=== PATIENT | female | born 1995 | race Caucasian/White ===

== ENCOUNTER 2016-12-29 02:46 | Inpatient (IN) | payer MEDICAID ==
[~2016-12-29] VITALS: Ht 139.7 cm; Wt 76.8 kg
[2016-12-29] MEDS ORDERED: D5%-LACTATED RINGERS 1,000 ML IV SCH (05:14)
[2016-12-29] MEDS ORDERED: OXYTOCIN 30U/ 0.9% NaCL 500ML 500 ML IV PRN (05:14)
[2016-12-29] MEDS ORDERED: OXYTOCIN 30U/ 0.9% NaCL 500ML 500 ML IV ONE (05:14)
[2016-12-29] MEDS: LACTATED RINGERS 1,000 ML IV SCH ×2 (05:28→20:17)
[2016-12-29] MEDS ORDERED: TERBUTALINE 1 MG/ML, 1ML SQ PRN (05:30)
[2016-12-29] MEDS ORDERED: PLEASE ENTER ALLERGIES MC SCH ×2 (05:30)
[2016-12-29] MEDS ORDERED: MISOPROSTOL 25 MCG TABLET VG PRN (05:30)
[2016-12-29] MEDS ORDERED: METOCLOPRAMIDE 5 MG/ML, 2ML IVPush PRN (05:30)
[2016-12-29] MEDS ORDERED: FENTANYL PF 100 MCG/2ML IV PRN (05:30)
[2016-12-29] MEDS ORDERED: SODIUM CITRATE/CITRIC ACID 30 ML UDC PO PRN (05:30)
[2016-12-29] MEDS ORDERED: FENTANYL PF 100 MCG/2ML IVPush PRN (05:30)
[2016-12-29] MEDS ORDERED: OXYTOCIN 30U/ 0.9% NaCL 500ML 500 ML ONE (05:31)
[2016-12-29] MEDS ORDERED: NEWBORN KIT ONE (05:33)
[2016-12-29 06:14] VITALS: BP 123/79
[2016-12-29] MEDS ORDERED: FENTANYL/BUPIV./NS/PF 250 ML EPIDCONT ONE (15:01)
[2016-12-29] MEDS ORDERED: LIDOCAINE/PF 1.5%-EPI 1:200K, 30ML ONE (15:02)
[2016-12-29 20:21] LABS: ASPARTATE AMINO TRANSFERASE 20 U/L (15-37); BLOOD UREA NITROGEN 5 mg/dL (7-18)
[2016-12-29] MEDS ORDERED: LABETALOL 5MG/ML, 20ML ONE (22:06)
[2016-12-29] MEDS ORDERED: LABETALOL 5MG/ML, 20ML IVPush PRN (22:30)
[2016-12-30] MEDS ORDERED: METOCLOPRAMIDE 5 MG/ML, 2ML ONE (01:23)
[2016-12-30] MEDS ORDERED: SODIUM CITRATE/CITRIC ACID 30 ML UDC ONE (01:23)
[2016-12-30] MEDS: LACTATED RINGERS 1,000 ML IV SCH ×5 (01:24→18:54)
[2016-12-30] MEDS: OXYTOCIN 30U/ 0.9% NaCL 500ML 500 ML IV SCH ×3 (01:24→21:24)
[2016-12-30] MEDS ORDERED: LIDOCAINE/MPF 2%-EPI 1:200K, 20 ML ONE (01:29)
[2016-12-30] MEDS ORDERED: SODIUM CITRATE/CITRIC ACID 30 ML UDC PO ONE (01:30)
[2016-12-30] MEDS ORDERED: FENTANYL PF 100 MCG/2ML ONE (01:30)
[2016-12-30] MEDS ORDERED: METOCLOPRAMIDE 5 MG/ML, 2ML IV ONE (01:30)
[2016-12-30] MEDS ORDERED: LACTATED RINGERS 1,000 ML IVBOLUS ONE (01:30)
[2016-12-30] MEDS ORDERED: HYDROmorphone 2 MG/ML, 1ML ONE (01:59)
[2016-12-30] MEDS ORDERED: LACTATED RINGERS 1,000 ML IV SCH (02:54)
[2016-12-30] MEDS ORDERED: OXYTOCIN 30U/ 0.9% NaCL 500ML 500 ML IV SCH (02:54)
[2016-12-30] MEDS ORDERED: DIPH,PERTUSS(ACELL),TET VAC/PF NC IM-VACC PRN (03:00)
[2016-12-30] MEDS ORDERED: ACETAMINOPHEN 325 MG TABLET PO PRN ×2 (03:00)
[2016-12-30] MEDS ORDERED: SIMETHICONE 80 MG CHEW TAB PO PRN (03:00)
[2016-12-30] MEDS ORDERED: CARBOPROST TROMETHAMINE 250 MCG/ML, 1ML IM PRN (03:00)
[2016-12-30] MEDS ORDERED: CALCIUM CARBONATE 500 MG TAB.CHEW PO PRN (03:00)
[2016-12-30] MEDS ORDERED: ONDANSETRON 2MG/ML, 2ML IV PRN (03:00)
[2016-12-30] MEDS: OXYcodone/APAP 5/325MG TABLET PO PRN ×4 (04:32→20:35)
[2016-12-30 04:55] VITALS: BP 126/78
[2016-12-30] MEDS ORDERED: KETOROLAC 30 MG/1 ML ONE (07:33)
[2016-12-30] MEDS: KETOROLAC 30 MG/1 ML IVPush SCH ×3 (07:39→20:35)
[2016-12-30 07:40] VITALS: BP 130/80
[2016-12-30] MEDS: DOCUSATE 100 MG CAPSULE PO PRN ×2 (07:42→20:34)
[2016-12-30] MEDS: PRENATAL VIT/IRON/FA 1 EACH TABLET PO SCH (09:00)
[2016-12-30] MEDS ORDERED: CEFAZOLIN 1,000 MG ONE (10:02)
[2016-12-30] MEDS ORDERED: ONDANSETRON 2MG/ML, 2ML ONE (10:02)
[2016-12-30 11:55] VITALS: BP 118/74
[2016-12-30 16:30] VITALS: BP 127/80
[2016-12-30 21:10] VITALS: BP 133/84
[2016-12-31 00:15] VITALS: BP 116/66
[2016-12-31] MEDS: KETOROLAC 30 MG/1 ML IVPush SCH ×2 (02:23→02:34)
[2016-12-31] MEDS: OXYcodone/APAP 5/325MG TABLET PO PRN ×5 (02:23→21:15)
[2016-12-31] MEDS: IBUPROFEN 600 MG TABLET PO PRN ×4 (02:31→21:15)
[2016-12-31] MEDS: LACTATED RINGERS 1,000 ML IV SCH ×3 (02:54→18:54)
[2016-12-31 07:15] VITALS: BP 113/62
[2016-12-31] MEDS: OXYTOCIN 30U/ 0.9% NaCL 500ML 500 ML IV SCH ×2 (07:24→17:24)
[2016-12-31] MEDS: DOCUSATE 100 MG CAPSULE PO PRN ×2 (08:01→21:15)
[2016-12-31] MEDS: PRENATAL VIT/IRON/FA 1 EACH TABLET PO SCH (08:01)
[2016-12-31 20:20] VITALS: BP 127/83
[2017-01-01] MEDS: LACTATED RINGERS 1,000 ML IV SCH ×3 (02:54→18:54)
[2017-01-01] MEDS: OXYTOCIN 30U/ 0.9% NaCL 500ML 500 ML IV SCH ×3 (03:24→23:24)
[2017-01-01] MEDS: OXYcodone/APAP 5/325MG TABLET PO PRN ×4 (03:24→22:21)
[2017-01-01] MEDS: IBUPROFEN 600 MG TABLET PO PRN ×4 (03:24→22:21)
[2017-01-01 08:13] VITALS: BP 142/93
[2017-01-01] MEDS: PRENATAL VIT/IRON/FA 1 EACH TABLET PO SCH (08:16)
[2017-01-01] MEDS: DOCUSATE 100 MG CAPSULE PO PRN ×2 (08:16→22:21)
[2017-01-01 20:40] VITALS: BP 137/74
[2017-01-02] MEDS: LACTATED RINGERS 1,000 ML IV SCH ×2 (02:54→10:54)
[2017-01-02] MEDS: IBUPROFEN 600 MG TABLET PO PRN ×3 (04:24→15:44)
[2017-01-02] MEDS: OXYcodone/APAP 5/325MG TABLET PO PRN ×3 (04:24→15:44)
[2017-01-02 07:35] VITALS: BP 132/95
[2017-01-02] MEDS: OXYTOCIN 30U/ 0.9% NaCL 500ML 500 ML IV SCH (09:24)
[2017-01-02] MEDS: DOCUSATE 100 MG CAPSULE PO PRN (10:30)
[2017-01-02] MEDS: PRENATAL VIT/IRON/FA 1 EACH TABLET PO SCH (10:30)
[2017-01-02] MEDS ORDERED: OXYC-302 PO (18:14)
[2017-01-02] MEDS ORDERED: IBUP-1222 PO (18:14)
[2017-01-02] MEDS ORDERED: FERR325T10 PO (18:14)
[2017-01-02] MEDS ORDERED: SENN-25 PO (18:15)
== END 2017-01-02 18:20 | disposition home or self-care (01) | DRG 766 ==
LOC: LDIP 05:02 → 2NW 12-30 04:26
PROVIDERS: ADMIT Obstetrics & Gynecology; ATTEND Obstetrics & Gynecology
PROC: 10D00Z1 Extraction of Products of Conception, Low, Open Approach (ICD-10-PCS; principal; 2016-12-30)
DX: O33.9 Maternal care for disproportion, unspecified (principal); Z37.0 Single live birth; O61.9 Failed induction of labor, unspecified; Z3A.39 39 weeks gestation of pregnancy; O90.81 Anemia of the puerperium; D64.9 Anemia, unspecified; O62.1 Secondary uterine inertia
CPT/HCPCS: 36415; 80053; 81001; 82248; 82803; 84550; 85025; 86850; 86900; 90715; J0690; J1170; J1885; J2405; J3010; J3490; J2590; J7120; J7121

== ENCOUNTER 2019-06-09 14:36 | Emergency (ER) | payer BC, OTHER ==
[~2019-06-09] VITALS: Ht 139.7 cm; Wt 75.4 kg
[~2019-06-09 14:36] MED LIST: FERR-51 PO; IBUP-1222 PO; OXYC-302 PO; SENN-25 PO
[2019-06-09 14:42] VITALS: BP 131/71
--- NOTE | 2019-06-09 14:46 | NUR ---
AMBULATORY TO TRIAGE W/ QUICK STEADY GAIT
[2019-06-09] MEDS ORDERED: KETOROLAC 30 MG/1 ML IM ONE (15:00)
[2019-06-09] MEDS ORDERED: ACETAMINOPHEN 500 MG TABLET PO ONE (15:00)
[2019-06-09] MEDS ORDERED: KETOROLAC 30 MG/1 ML ONE (15:40)
== END 2019-06-09 16:30 | disposition home or self-care (01) ==
LOC: ED 15:54
DX: S39.012A Strain of muscle, fascia and tendon of lower back, initial encounter (principal); S29.012A Strain of muscle and tendon of back wall of thorax, initial encounter; V49.49XA Driver injured in collision with other motor vehicles in traffic accident, initial encounter; Y93.89 Activity, other specified; Y92.410 Unspecified street and highway as the place of occurrence of the external cause; Y99.8 Other external cause status
CPT/HCPCS: 72072; 72110; 96372; 99283; J1885

== ENCOUNTER 2019-09-03 14:28 | Emergency (ER) | payer BC, MEDICAID, OTHER ==
[~2019-09-03] VITALS: Ht 139.7 cm; Wt 77.9 kg
[2019-09-03 15:28] LABS: BASOPHILS # (AUTO) 0.07 x10^3/uL (0-0.1); BASOPHILS % (AUTO) 1 % (0-1); EOSINOPHILS # (AUTO) 0.19 x10^3/uL (0-0.4); EOSINOPHILS % (AUTO) 2 % (1-7); LYMPHOCYTES # (AUTO) 2.51 x10^3/uL (1-3.4); LYMPHOCYTES % (AUTO) 20 % (22-44); MD NO; MEAN CORPUSCULAR HEMOGLOBIN 28.7 pg (27.0-34.8); MEAN CORPUSCULAR HGB CONC 33.3 g/dL (32.4-35.8); MEAN CORPUSCULAR VOLUME 86.2 fL (80-100); MEAN PLATELET VOLUME 5.9 fL (7.4-10.4); MONOCYTES # (AUTO) 0.58 x10^3/uL (0.2-0.8); MONOCYTES % (AUTO) 5 % (2-9); NEUTROPHILS # (AUTO) 9.09 x10^3/uL (1.8-6.8); NEUTROPHILS % (AUTO) 73 % (42-75); PLATELET COUNT 429 x10^3/uL (130-400); RED BLOOD COUNT 5.22 x10^6/uL (3.82-5.3); RED CELL DISTRIBUTION WIDTH 13.1 % (9.6-15.2)
[2019-09-03 15:37] LABS: ANION GAP 6 mmol/L (5-15); CALCIUM 8.9 mg/dL (8.5-10.1); CHLORIDE 108 mmol/L (98-107); CREATININE 1.01 mg/dL (0.55-1.02)
[2019-09-03 15:42] LABS: TROPONIN I < 0.015 ng/mL (0.000-0.045)
[2019-09-03 18:35] VITALS: BP 137/94
--- NOTE | 2019-09-03 18:35 | NUR ---
ASSUMED CARE OF PT AT THIS TIME FROM LOBBY. AMBULATORY TO ROOM WITH STEADY GAIT. 23 Y/O F PRESENTS STATING "CHEST PAIN THAT COMES AND GOES FOR 3 DAYS, SEVERITY CHANGES, FELT DIZZY ON AND OFF, PUSHING ON IT MAKES IT WORSE. 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 CP REPRODUCABLE TO PALPATION. DENIES SOB, TANNER, DIZZINES, N/V/D, FEVER, CHILLS. CONT PULSE OX, BP, CARDIAC MONITORS APPLIED. VSS. SR ON MONITOR. CALL LIGHT IN REACH. FALL PRECAUTIONS IN PLACE. SIDE RAILS UPX2. A&OX4. DR. LINARES AT BEDSIDE FOR EVALUATION, AWAITING ADDITIONAL ORDERS.
--- NOTE | 2019-09-03 18:49 | NUR ---
ARA ELIZABETH AT BEDSIDE TO DISCHARGE PT PER MD ORDER
--- NOTE | 2019-09-03 18:50 | NUR ---
TASK RN: DC EDUCATION PROVIDED, PT DEMONSTRATES UNDERSTANDING. PT AMBUALTED STEADILY TO DC WITH RN
[2019-09-03] MEDS ORDERED: BIRTH CONTROL SUBD (18:59)
== END 2019-09-03 18:52 | disposition home or self-care (01) ==
LOC: ED 15:30
DX: R07.89 Other chest pain (principal); R42 Dizziness and giddiness
CPT/HCPCS: 36415; 71046; 80048; 82040; 84484; 85025; 93005; 99285

== ENCOUNTER 2020-09-14 06:26 | Emergency (ER) | payer BC, MEDICAID, OTHER ==
[~2020-09-14] VITALS: Ht 142.2 cm; Wt 80.8 kg
[~2020-09-14 06:26] MED LIST changes: +BIRTH CONTROL SUBD; -OXYC-302 PO; +OXYC1TAB14 PO
--- NOTE | 2020-09-14 06:40 | NUR ---
INITIAL PT CONTACT. PT PRESENTS TO ED C/O "WOKE UP WITH SLURRED SPEECH, NUMBING OF FACE AND MOUTH AN DBOTH HANDS AND FELT LIKE SHE NEEDED TO THROW UP." HAS HAPPENED A COUPLE TIME, BUT TODAY IT WAS BAD. PT STATES SHE'S HAD BLURRED VISION AT TIMES. HAS BEEN TO [employer] RECENTLY, AND MIGHT HAVE A LARGE OPTIC NERVE OR NEEDED GLASSES FOR GLAUCOMA. PT'S STATES "IT WAS KIND OF LIKE A TODDLER THAT'S BEEN AWAKE FOR TOO LONG AND IS DELERIOUS AND JUST NEEDS TO SLEEP, JUST DIDN'T MAKE MUCH SENSE". PT AMBULATORY WITH STEADY GAIT TO ROOM, PT SITTING UPRIGHT ON KLARISSA BARAKAT, VSS. PT PLACED ON CONTINUOUS CARDIAC AND PULSE OX MONITORING. PT DENIES ANY NEEDS AT THIS TIME. CALL LIGHT AND PERSONAL BELONGINGS WITHIN REACH. ERP AT BEDSIDE.
--- NOTE | 2020-09-14 06:52 | NUR ---
GOT REPORT FROM ANA ELIZABETH AND WENT IN TO SEE PT. PT SITTING UP IN BED WITH FAMILY AT BEDSIDE.
--- NOTE | 2020-09-14 06:53 | NUR ---
BEDSIDE REPORT TO CAROLIN ELIZABETH AND KRISTINA ELIZABETH
--- NOTE | 2020-09-14 07:05 | NUR ---
PT BACK FROM CT.
[2020-09-14 07:32] LABS: ALBUMIN 3.7 g/dL (3.4-5.0); ANION GAP 9 mmol/L (5-15); CALCIUM 8.6 mg/dL (8.5-10.1); CHLORIDE 111 mmol/L (98-107); CREATININE 0.66 mg/dL (0.55-1.02); INTERNATIONAL NORMALIZED RATIO 1.02 (0.93-1.1); PROTHROMBIN TIME 10.9 Seconds (9.6-11.5)
[2020-09-14 07:37] LABS: BASOPHILS % (AUTO) 1 % (0-1); EOSINOPHILS % (AUTO) 1 % (1-7); LYMPHOCYTES % (AUTO) 28 % (22-44); MEAN CORPUSCULAR HEMOGLOBIN 28.1 pg (27.0-34.8); MEAN CORPUSCULAR HGB CONC 33.9 g/dL (32.4-35.8); MONOCYTES % (AUTO) 6 % (2-9); NEUTROPHILS % (AUTO) 64 % (42-75); PLATELET COUNT 323 x10^3/uL (130-400); RED BLOOD COUNT 5.08 x10^6/uL (3.82-5.3); RED CELL DISTRIBUTION WIDTH 12.9 % (9.6-15.2)
[2020-09-14] MEDS ORDERED: ONDANSETRON ODT 4 MG ONE (07:44)
[2020-09-14 07:45] LABS: AMPHETAMINE SCREEN, URINE Negative (Negative); BARBITURATE SCREEN, URINE Positive (Negative); BENZODIAZEPINE SCREEN, URINE Negative (Negative); CANNABINOID SCREEN, URINE Negative (Negative); COCAINE SCREEN, URINE Negative (Negative); METHADONE SCREEN, URINE Negative (Negative); OPIATE SCREEN, URINE Negative (Negative)
[2020-09-14 07:48] LABS: MD NO
--- NOTE | 2020-09-14 07:48 | NUR ---
PT COMPLAINT OF NAUSEA DUE TO TANNER. DISCUSSED PLAN OF CARE WITH PROVIDER. MEDICATED PER MAR. CYR.
[2020-09-14] MEDS ORDERED: SODIUM CHLORIDE FLUSH 10ML SYR IVF ONE (08:00)
[2020-09-14] MEDS ORDERED: SODIUM CHLORIDE 0.9% 1,000ML IVBOLUS ONE (08:00)
[2020-09-14] MEDS ORDERED: ONDANSETRON ODT 4 MG PO ONE (08:00)
--- NOTE | 2020-09-14 08:11 | NUR ---
PT REPORTS EMESIS. SMALL AMOUNT NOTED IN BAG. PT REPORTS NAUSEA RESOLVED AT THIS TIME.
[2020-09-14] MEDS ORDERED: DEXAMETHASONE 4 MG/ML, 1ML IVPush ONE (08:30)
[2020-09-14] MEDS ORDERED: KETOROLAC 30 MG/1 ML IVPush ONE (08:30)
[2020-09-14] MEDS ORDERED: DIPHENHYDRAMINE 50 MG/ML, 1ML IVPush ONE (08:30)
[2020-09-14] MEDS ORDERED: METOCLOPRAMIDE 5 MG/ML, 2ML IVPush ONE (08:30)
[2020-09-14] MEDS ORDERED: DEXAMETHASONE 4 MG/ML, 5ML ONE (08:35)
[2020-09-14] MEDS ORDERED: METOCLOPRAMIDE 5 MG/ML, 2ML ONE (08:36)
[2020-09-14] MEDS ORDERED: KETOROLAC 30 MG/1 ML ONE (08:36)
[2020-09-14] MEDS ORDERED: DIPHENHYDRAMINE 50 MG/ML, 1ML ONE (08:36)
--- NOTE | 2020-09-14 09:02 | NUR ---
PT TO MRI.
--- NOTE | 2020-09-14 09:51 | NUR ---
TASK RN: UPON RETURN FROM MRI PT MEDICATED NOTED ON MAR FOR TANNER.
--- NOTE | 2020-09-14 10:15 | NUR ---
PT RESTING IN BED WITH S.O. AT BEDSIDE. PT HAS NO OTHER REQUESTS AT THIS TIME.
--- NOTE | 2020-09-14 10:36 | NUR ---
DR WEAVER IN TO DISCUSS POC.
[2020-09-14 10:53] VITALS: BP 129/55
--- NOTE | 2020-09-14 11:06 | NUR ---
PT AMBULITORY WITH STEADY GAIT OUT OF UNIT
== END 2020-09-14 11:08 | disposition home or self-care (01) ==
LOC: ED 07:43
DX: G43.009 Migraine without aura, not intractable, without status migrainosus (principal); R20.0 Anesthesia of skin; R11.0 Nausea
CPT/HCPCS: 36415; 70450; 70551; 80048; 80307; 82040; 84703; 85025; 85610; 85730; 93005; 96361; 96374; 96375; 99285; J1100; J1200; J1885; J2765; J7030; Q0162